=== PATIENT | female | born 1965 | race Caucasian/White ===

== ENCOUNTER 2020-02-15 10:59 | Emergency (ER) | payer SELFPAY ==
[2020-02-15] MEDS ORDERED: SODIUM CHLORIDE 0.9% (FLUSH) 10 ML SYG IV PRN (11:16)
[2020-02-15] MEDS ORDERED: MORPHINE SULFATE INJ 10 MG/ML VIAL IV ONE (11:17)
--- NOTE | 2020-02-15 11:21 | ED.PDOC ---
History of Present Illness - General Chief Complaint: Cardiovascular Problem Stated Complaint: post CABG midsternal incision knot Time Seen by Provider: 02/15/20 11:15 Source: patient - History of Present Illness Initial Comments: 54-year-old female with past medical history of hypertension, diabetes, CAD s/p CABG 01/28/2020 who presents with chief complaint of pain and swelling to the anterior chest wall near her surgical incision site. Reports onset at 2:30 AM today with progressive worsening since then. She describes moderate swelling and marked tenderness to palpation to the superior aspect of the vertical incision site from her CABG procedure. Reports pain is 4/10 severity at rest but worsens to 8/10 severity with coughing or palpation of the area, no medications taken from relief. Pain is not worsened by activity/exertion. She reports moderate dyspnea which is unchanged since her procedure. Denies any redness swelling warmth or drainage from the incision site. Otherwise reports that her postoperative course has been pretty well. She does report intermittent cough which is now becoming productive for some green sputum. Denies any fevers, chills, abdominal pain, nausea/vomiting, leg swelling. Patient was seen here on 01/23/2020 and diagnosed with an STEMI and transferred urgently to [facility]. She underwent CABG 01/28/2020. Her CT surgeon was Dr. Fong and her pipe layer helper is Dr. Meredith. She continues to smoke a few cigarettes per day. Allergies/Adverse Reactions: Allergies Spironolactone Allergy (Verified 02/15/20 11:23) Sulfa Antibiotics Allergy (Verified 02/15/20 11:23) Home Medications: Ambulatory Orders Atenolol [Tenormin] 50 mg PO BID #60 tab 12/30/19 Furosemide [Lasix] 40 mg PO DAILY #15 tab 12/30/19 Lisinopril [Prinivil] 10 mg PO DAILY #30 tab 12/30/19 amLODIPine BESYLATE [Norvasc] 10 mg PO DAILY #30 tab 12/30/19 Acetaminophen W/ Codeine [Tylenol W/ CODEINE #3] 1 ea PO Q6H PRN 7 Days #10 ea 1 Review of Systems - Review of Systems Review of Systems: 02/15/20 11:21 as per HPI All other Systems: Reviewed and Negative Past Medical History (General) - Patient Medical History Hx Stroke: Yes - "mini stroke" Hx of COPD: Yes Hx Cardiac Disorders: Yes - A fib Hx Congestive Heart Failure: No Hx Hypertension: Yes Hx Thyroid Disease: Yes Hx Diabetes: Yes Hx Cancer: No - Vaccination History Hx Tetanus, Diphtheria Vaccination: Yes Hx Influenza Vaccination: Yes Hx Pneumococcal Vaccination: No - Social History Hx Tobacco Use: Yes Hx Alcohol Use: No Hx Substance Use: No Hx Substance Use Treatment: No Hx Depression: No - Female History Patient : No Family Medical History - Family History Mother Family History: Unknown Physical Exam - Physical Exam General Appearance: Alert, Comfortable, No apparent distress Eye Exam: bilateral normal Ears, Nose, Throat: hearing grossly normal, normal ENT inspection Neck: non-tender, full range of motion, supple, normal inspection Respiratory: lungs clear, normal breath sounds, no respiratory distress, no accessory muscle use Cardiovascular/Chest: normal peripheral pulses, no edema, no gallop, no JVD, no murmur, tachycardia, other - Approximately 10 cm vertical incision wound appears to be healing well. To the superior aspect of the wound there is approximately 3 x 3 cm area of slight induration which is markedly tender to palpation. There is no appreciable erythema, warmth, fluctuance. no drainage from the wound site Peripheral Pulses: radial,right: 2+, radial,left: 2+ Gastrointestinal/Abdominal: non tender, soft, no organomegaly Back Exam: normal inspection, no CVA tenderness, no vertebral tenderness Extremity: normal range of motion, non-tender, normal inspection, no pedal edema, no calf tenderness, normal capillary refill Neurologic: electroless plater II-XII nml as tested, no motor/sensory deficits, alert, normal mood/affect, oriented x 3 Skin Exam: normal color, warm/dry Progress - Progress Progress: 02/15/20 11:22 Chest wall surgical site pain -Suspect possible developing wound site infection/abscess. Consider also costochondritis, pleuritis, pneumonia, ACS, PE, other. -Obtain blood work, cardiac work-up, 2 view chest x-ray -Morphine 4 mg IV for pain 02/15/20 12:28 -Patient remains stable, pain is improving. Labs reveal initial troponin 0.02, d-dimer elevated greater than 2000, normal serum WBC, labs otherwise unremarkable. -X-ray of the chest does reveal cardiomegaly and bilateral hazy interstitial opacification concerning for pulmonary edema versus possible infectious process. -Given the elevated d-dimer in the setting of postoperative patient, will obtain CTA of the chest for further evaluation. 02/15/20 13:57 -Patient reports pain is markedly improved following the morphine. She remains stable. -CTA of the chest reveals no acute processes and no evidence of pulmonary embolism. There are expected postoperative changes to the retrosternal region. There there is no evidence of fluid collection or abscesses. -I discussed the patient as well with Dr. Brown, the CT surgeon at [facility], who advises no antibiotics at this point as there appears to not be an infection. He advises to have the patient follow-up in his clinic in 2 days for repeat evaluation. -Discussed all of this with the patient who verbalizes her understanding. Will discharge also with short-term prescription of Tylenol 3 as needed. Return warnings discussed at length. Discharged home in good condition. Ephraim Whitley MD Billing #[id number] 02/15/20 11:16 IV Care:Saline Lock per Protoc QSHIFT Telemetry .ONCE Sodium Chloride 0.9% (Flush) [Saline Flush Syringe] 10 ml IV PRN PRN 02/15/20 11:30 EKG STAT 02/15/20 13:29 RESPIRATORY PANEL 2 Stat 02/16/20 09:00 Pulse Ox Daily Laboratory Results - last 24 hr 02/15/20 02/15/20 02/15/20 11:27 11:27 11:27 WBC 9.2 RBC 4.14 L Hgb 11.7 L Hct 34.2 L MCV 82.5 MCH 28.3 MCHC 34.3 RDW 14.2 Plt Count 425 H MPV 6.9 L Absolute Neuts (auto) 7.10 H Absolute Lymphs (auto) 1.00 Absolute Monos (auto) 0.40 Absolute Eos (auto) 0.50 H Absolute Basos (auto) 0.10 Neutrophils % 77.9 Lymphocytes % 11.4 L Monocytes % 4.4 Eosinophils % 5.3 H Basophils % 1.0 D-Dimer, Quantitative Sodium 136 Potassium 3.3 L Chloride 98 L Carbon Dioxide 24 Anion Gap 17.3 BUN 18 Creatinine 0.47 L BUN/Creatinine Ratio 38.3 H Random Glucose 256 H Serum Osmolality 282.6 Lactic Acid 2.0 Calcium 9.0 Total Bilirubin 0.7 AST 20 ALT 16 Alkaline Phosphatase 82 Troponin I B-Natriuretic Peptide 41.3 Serum Total Protein 7.5 Albumin 3.5 Globulin 4.0 H Albumin/Globulin Ratio 0.9 L 02/15/20 02/15/20 11:27 11:27 WBC RBC Hgb Hct MCV MCH MCHC RDW Plt Count MPV Absolute Neuts (auto) Absolute Lymphs (auto) Absolute Monos (auto) Absolute Eos (auto) Absolute Basos (auto) Neutrophils % Lymphocytes % Monocytes % Eosinophils % Basophils % D-Dimer, Quantitative 2320.0 H* Sodium Potassium Chloride Carbon Dioxide Anion Gap BUN Creatinine BUN/Creatinine Ratio Random Glucose Serum Osmolality Lactic Acid Calcium Total Bilirubin AST ALT Alkaline Phosphatase Troponin I 0.02 B-Natriuretic Peptide Serum Total Protein Albumin Globulin Albumin/Globulin Ratio - EKG/XRAY/CT EKG: Sinus, Tachy - Heart rate 100, no ST elevations noted, Q waves noted in inferior and anteroseptal leads indicative of likely prior ME, nonspecific T wave inversions noted in anteroseptal and inferior leads, axis normal, intervals normal, compared to 01/23/2020 EKG T wave inversions appear new XRAY: chest - Hazy bilateral lower lobe opacities concerning for infectious process versus pulmonary edema most likely per my read. Departure - Departure Clinical Impression: Pain at surgical incision Time of Disposition: 13:36 Disposition: Discharge to Home or Self Care Condition: Good Departure Forms: ED Discharge - Pt. Copy, Patient Portal Self Enrollment Instructions: DI for Chest Pain, Surgical Wound (DC) Diet: resume usual diet Activity: increase activity as tolerated Prescriptions: Acetaminophen W/ Codeine [Tylenol W/ CODEINE #3] 1 ea PO Q6H PRN 7 Days #10 ea PRN Reason: Pain Home Medications: Ambulatory Orders Atenolol [Tenormin] 50 mg PO BID #60 tab 12/30/19 Furosemide [Lasix] 40 mg PO DAILY #15 tab 12/30/19 Lisinopril [Prinivil] 10 mg PO DAILY #30 tab 12/30/19 amLODIPine BESYLATE [Norvasc] 10 mg PO DAILY #30 tab 12/30/19 Acetaminophen W/ Codeine [Tylenol W/ CODEINE #3] 1 ea PO Q6H PRN 7 Days #10 ea 02/15/20 Additional Instructions: You may continue to take Tylenol 650 mg as needed every 6 hours for pain. You may also apply cool and warm compresses as you feel that they help. Follow-up with Dr. Brown in 2 days in his clinic for repeat evaluation. You may take the Tylenol 3 as needed for breakthrough pain. Do not drive or operate heavy machinery when taking as it may cause you to be drowsy. Return to the ED if you develop any other concerning symptoms such as worsening or changing chest pain, fevers, chills, shortness of breath, etc.
--- NOTE | 2020-02-15 11:57 | RAD ---
Study: Frontal and Lateral Radiographs of the Chest. Indication: ant chest wall pain at incision site, s/p CABG Comparison: January 23, 2020 Impression: Median sternotomy wires present. Heart size normal. Mild hazy opacities and the lung bases which could reflect pulmonary edema, pneumonia, or atelectasis. No pleural effusion or pneumothorax. Degenerative changes of the spine noted. Osteopenia. If this is a new finding, DEXA scan recommended as well as evaluation for possible osteoporosis treatment. Electronically signed by: Holden Queen MD 02/15/2020 11:54 AM CDT
[2020-02-15] MEDS ORDERED: LIDOCAINE 1% W/ EPINEPHRINE 20 ML VIAL INJ ONE (12:05)
--- NOTE | 2020-02-15 13:26 | CT ---
EXAM DESCRIPTION: CTA Chest CLINICAL HISTORY: 54 years Female, chest pain, dyspnea, elevated d-dimer, s/p CABG TECHNIQUE: Volumetric CT angiographic data acquisition of the thorax was obtained. Standard axial and CT angiographic MIP sagittal and coronal images are submitted. This exam was performed according to our departmental dose-optimization program, which includes automated exposure control, adjustment of the mA and/or kV according to patient size and/or use of iterative reconstruction technique. COMPARISON: None available FINDINGS: The thyroid gland is unremarkable. No axillary adenopathy. Recent median sternotomy/CABG. Small amount of edema and small gas locules in the retrosternal space, which is likely expected postoperatively. Normal caliber thoracic aorta. No significant pericardial effusion. No evidence of acute process in the visualized upper abdomen. No mediastinal adenopathy. No pulmonary embolus identified. No pneumothorax. No pleural effusion. No focal consolidation. No suspicious pulmonary nodule. Scattered areas of scarring and volume loss. No acute or suspicious osseous abnormality. Scattered degenerative changes present. IMPRESSION: 1. No pulmonary embolus. 2. Postsurgical changes related to recent median sternotomy/CABG. Electronically signed by: Miles Wagner MD 02/15/2020 1:24 PM CDT
[2020-02-15 14:47] VITALS: TEMP 97.3
[2020-02-15 14:50] VITALS: BP 132/80; O2SAT 97
== END 2020-02-15 14:40 | disposition home or self-care (01) ==
LOC: ER 10:59
DX: G89.18 Other acute postprocedural pain (principal); R07.89 Other chest pain; R00.0 Tachycardia, unspecified; I25.10 Atherosclerotic heart disease of native coronary artery without angina pectoris; I10 Essential (primary) hypertension; E11.9 Type 2 diabetes mellitus without complications; I25.2 Old myocardial infarction; F17.210 Nicotine dependence, cigarettes, uncomplicated; J44.9 Chronic obstructive pulmonary disease, unspecified; I48.91 Unspecified atrial fibrillation; E07.9 Disorder of thyroid, unspecified; Z95.1 Presence of aortocoronary bypass graft; Z86.73 Personal history of transient ischemic attack (TIA), and cerebral infarction without residual deficits; Z79.899 Other long term (current) drug therapy; Z88.2 Allergy status to sulfonamides; Z88.8 Allergy status to other drugs, medicaments and biological substances
CPT/HCPCS: 36415; 71046; 71275; 80053; 83605; 83880; 84484; 85025; 85379; 93005; 94760; J2270

== ENCOUNTER 2020-06-05 13:11 | Emergency (ER) | payer SELFPAY ==
[2020-06-05 13:29] VITALS: O2SAT 96
--- NOTE | 2020-06-05 14:41 | CT ---
Sex: Female. : 1965. Technique: Axial scans through the cervical spine without contrast including multiplanar reformations. Total Dose Length Product: 308. This exam was performed according to our departmental dose-optimization program, which includes automated exposure control, adjustment of the mA and/or kV according to patient size and/or use of iterative reconstruction technique. Clinical history: radicular pain. C1-2: The predental space is normal. C2-3: The disc is height is normal. There is no disc herniation. C3-4: The disc is height is normal. There is no disc herniation. C4-5: The disc is height is normal. There is no disc herniation. C5-6: The disc is height is normal. There is no disc herniation. C6-7: The disc is height is normal. There is no disc herniation. Intradural: Negative to the limits of visualization by CT. Skeletal structures: There is no acute fracture. There is no subluxation. Musculature and soft tissues: Unremarkable. Impression: 1. No acute skeletal abnormality. 2. No evidence for spinal or foraminal stenosis. Electronically signed by: Lc Alas MD 06/05/2020 2:40 PM [facility]
--- NOTE | 2020-06-05 14:49 | ED.PDOC ---
History of Present Illness - General Chief Complaint: Upper Extremity Injury Stated Complaint: L shoulder, neck and upper back pain Time Seen by Provider: 06/05/20 13:44 Additional Information: PATIENT CO CONSTANT PAIN IN HER LEFT SHOULDER AND NECK X 5 DAYS, SHE STATES SHE FEEL 2 WEEKS AGO ON OUTSTRETCHED LEFT ARM, SHE FELT THEIR MIGHT BE A RELATIONSHIP. PATIENT STATES PAIN IS A 12/10. - History of Present Illness Improving Factors: nothing Worsening Factors: nothing Associated Symptoms: denies symptoms, muscle spasms Allergies/Adverse Reactions: Allergies Spironolactone Allergy (Verified 06/05/20 13:29) Sulfa Antibiotics Allergy (Verified 06/05/20 13:29) Home Medications: Ambulatory Orders Atenolol [Tenormin] 50 mg PO BID #60 tab 12/30/19 Furosemide [Lasix] 40 mg PO DAILY #15 tab 12/30/19 Lisinopril [Prinivil] 10 mg PO DAILY #30 tab 12/30/19 amLODIPine BESYLATE [Norvasc] 10 mg PO DAILY #30 tab 12/30/19 Acetaminophen W/ Codeine [Tylenol W/ CODEINE #3] 1 ea PO Q6H PRN 7 Days #10 ea 02/15/20 Cyclobenzaprine HCl [Flexeril] 10 mg PO TID PRN #30 tab 06/05/20 Meloxicam 15 mg PO DAILY #10 tab 06/05/20 Tramadol HCl [Ultram] 50 mg PO Q4H PRN 7 Days #15 tab 06/05/20 Review of Systems - Review of Systems Constitutional: States: no symptoms reported EENTM: States: no symptoms reported Cardiology: States: no symptoms reported Gastrointestinal/Abdominal: States: no symptoms reported Genitourinary: States: no symptoms reported Past Medical History (General) - Patient Medical History Hx Stroke: Yes - "mini stroke" Hx of COPD: Yes Hx Cardiac Disorders: Yes - CABG Hx Congestive Heart Failure: No Hx Hypertension: Yes Hx Thyroid Disease: Yes Hx Diabetes: Yes Hx Cancer: No Surgical History: coronary bypass surgery - Vaccination History Hx Tetanus, Diphtheria Vaccination: Yes Hx Influenza Vaccination: Yes Hx Pneumococcal Vaccination: Yes - Social History Hx Tobacco Use: Yes Hx Alcohol Use: Yes Hx Substance Use: No Hx Substance Use Treatment: No Hx Depression: No - Female History Patient is a Female of Child Bearing Age (10 -59 yrs old): Yes Patient : No Family Medical History - Family History Mother Family History: Unknown Physical Exam - Physical Exam General Appearance: Alert, Well Developed, Well Groomed, Well Hydrated, Well Nourished Neck Exam: non-tender, full range of motion, normal alignment, normal inspection Cardiovascular/Respiratory: regular rate, rhythm, normal peripheral pulses, normal breath sounds, no respiratory distress Gastrointestinal/Abdominal: normal bowel sounds, non tender, soft Back Exam: normal inspection, no CVA tenderness, vertebral tenderness - PALPAT ION OF NECK DIFFUSELY REPRODUCES PAIN PER PATIENT. Extremity Exam: no evidence of injury, normal range of motion, non-tender Neurologic: alert, normal mood/affect, oriented x 3 Skin Exam: normal color, warm/dry Departure - Departure Clinical Impression: Neck pain Time of Disposition: 14:54 Disposition: Discharge to Home or Self Care Condition: Good Departure Forms: ED Discharge - Pt. Copy, Patient Portal Self Enrollment Instructions: DI for Arm Pain Referrals: Niurka Estrada MD [Primary Care Provider] - 1-2 Weeks Prescriptions: Cyclobenzaprine HCl [Flexeril] 10 mg PO TID PRN #30 tab PRN Reason: Muscle Spasms Meloxicam 15 mg PO DAILY #10 tab Tramadol HCl [Ultram] 50 mg PO Q4H PRN 7 Days #15 tab PRN Reason: Pain Home Medications: Ambulatory Orders Atenolol [Tenormin] 50 mg PO BID #60 tab 12/30/19 Furosemide [Lasix] 40 mg PO DAILY #15 tab 12/30/19 Lisinopril [Prinivil] 10 mg PO DAILY #30 tab 12/30/19 amLODIPine BESYLATE [Norvasc] 10 mg PO DAILY #30 tab 12/30/19 Acetaminophen W/ Codeine [Tylenol W/ CODEINE #3] 1 ea PO Q6H PRN 7 Days #10 ea 02/15/20 Cyclobenzaprine HCl [Flexeril] 10 mg PO TID PRN #30 tab 06/05/20 Meloxicam 15 mg PO DAILY #10 tab 06/05/20 Tramadol HCl [Ultram] 50 mg PO Q4H PRN 7 Days #15 tab 06/05/20
[2020-06-05 15:19] VITALS: BP 146/102; TEMP 97.9
== END 2020-06-05 15:15 | disposition home or self-care (01) ==
LOC: ER 13:11
DX: M54.2 Cervicalgia (principal); M25.512 Pain in left shoulder; J44.9 Chronic obstructive pulmonary disease, unspecified; I51.9 Heart disease, unspecified; I10 Essential (primary) hypertension; E07.9 Disorder of thyroid, unspecified; E11.9 Type 2 diabetes mellitus without complications; Z95.1 Presence of aortocoronary bypass graft; Z86.73 Personal history of transient ischemic attack (TIA), and cerebral infarction without residual deficits; Z87.891 Personal history of nicotine dependence; Z79.899 Other long term (current) drug therapy; Z88.8 Allergy status to other drugs, medicaments and biological substances; Z88.2 Allergy status to sulfonamides